=== PATIENT | male | born 1950 | race Hispanic/Latino ===

== ENCOUNTER 2017-06-15 11:11 | Inpatient (IN) | payer MEDICARE ==
[2017-06-15 11:17] VITALS: BMI 20.1
--- NOTE | 2017-06-15 12:07 | C.PDOC ---
History Of Present Illness 66 y/o male presents to emergency department who was prescreened for alcohol detox prior to arrival. Patient reports he regularly drinks 1/2 liter of vodka per day, noting last drink was this morning. Patient also admits to tobacco use for 45 years. Otherwise, denies headache, fever, chills, chest pain, SOB, nausea , vomiting, withdrawal symptoms. Denies suicidal ideation or homicidal ideation. Time Seen by Provider: 06/15/17 11:38 Chief Complaint (Nursing): Substance Abuse History Per: Patient History/Exam Limitations: no limitations Onset/Duration Of Symptoms: Persistent Current Symptoms Are (Timing): Still Present Modifying Factor(s): Alcohol Associated Symptoms: denies: Suicidal Thoughts, Suicidal Plan Recent travel outside of the [place]: No Past Medical History Reviewed: Historical Data, Nursing Documentation, Vital Signs Vital Signs: Last Vital Signs Temp 97.9 F 06/15/17 14:45 Pulse 104 H 06/15/17 14:45 Resp 18 06/15/17 14:45 BP 109/69 06/15/17 14:45 Pulse Ox 95 06/15/17 14:45 Family History: States: Unknown Family Hx - Social History Hx Alcohol Use: Yes Hx Substance Use: No - Immunization History Hx Tetanus Toxoid Vaccination: No Hx Influenza Vaccination: No Hx Pneumococcal Vaccination: No Review Of Systems Except As Marked, All Systems Reviewed And Found Negative. Constitutional: Negative for: Fever, Chills Cardiovascular: Negative for: Chest Pain Respiratory: Negative for: Cough, Shortness of Breath Gastrointestinal: Negative for: Nausea, Vomiting, Abdominal Pain Skin: Negative for: Rash Neurological: Negative for: Headache, Dizziness Physical Exam - Physical Exam Appears: Non-toxic, No Acute Distress, Other (thin, frail) Skin: Normal Color, Warm, Dry Head: Atraumatic, Normacephalic Chest: Symmetrical Cardiovascular: Rhythm Regular Respiratory: Rales (some, bilateral), No Rhonchi, No Stridor, No Wheezing Gastrointestinal/Abdominal: Soft, No Tenderness, No Guarding, No Rebound Back: Normal Inspection Extremity: Normal ROM, Capillary Refill (< 2 sec.) Neurological/Psych: Oriented x3, Normal Speech, Normal Cognition ED Course And Treatment - Laboratory Results Result Diagrams: 06/15/17 12:32 06/15/17 12:32 O2 Sat by Pulse Oximetry: 98 (RA) Pulse Ox Interpretation: Normal - Other Rad Chest X-Ray X-Ray: Viewed By Me, Read By Radiologist Interpretation: FINDINGS: LUNGS: Hyperinflation may be seen in setting of COPD. Mild bibasilar atelectasis. Bilateral 7 mm nodular densities may reflect nipple shadows. Please note that chest x-ray has limited sensitivity for the detection of pulmonary masses. PLEURA: No significant pleural effusion identified. No definite pneumothorax . CARDIOVASCULAR: Heart size appears within normal limits. OSSEOUS STRUCTURES: Mild degenerative changes of the spine. VISUALIZED UPPER ABDOMEN: Unremarkable. OTHER FINDINGS: None. IMPRESSION: Hyperinflation may be seen in the setting of COPD. Mild bibasilar atelectasis. Bilateral 7 mm nodular densities may reflect nipple shadows. Disposition Counseled Patient/Family Regarding: Diagnosis - Disposition Disposition: HOSPITALIZED Disposition Time: 18:33 Condition: GUARDED Forms: [facility] (Yoruba) - POA Present On Arrival: None - Clinical Impression Clinical Impression: Alcohol abuse - Scribe Statement The provider has reviewed the documentation as recorded by the Scribpepe Ferris All medical record entries made by the Lyibe were at my direction and personally dictated by me. I have reviewed the chart and agree that the record accurately reflects my personal performance of the history, physical exam, medical decision making, and the department course for this patient. I have also personally directed, reviewed, and agree with the discharge instructions and disposition. Decision To Admit - Pt Status Changed To: Hospital Disposition Of: Inpatient - Admit Certification Admit to Inpatient:: After my assessment, the patient will require hospitalization for at least two midnights. This is because of the severity of symptoms shown, intensity of services needed, and/or the medical risk in this patient being treated as an outpatient. - InPatient: Physician Admission Certification: I certify that this patient requires 2 or more midnights of care for the following reason:: needs inpatient detox - . Bed Request Type: Detox Patient Diagnosis: Alcohol abuse
--- NOTE | 2017-06-15 12:30 | RAD ---
HISTORY: medical clearance COMPARISON: None available. TECHNIQUE: Chest PA and lateral FINDINGS: LUNGS: Hyperinflation may be seen in setting of COPD. Mild bibasilar atelectasis. Bilateral 7 mm nodular densities may reflect nipple shadows. Please note that chest x-ray has limited sensitivity for the detection of pulmonary masses. PLEURA: No significant pleural effusion identified. No definite pneumothorax . CARDIOVASCULAR: Heart size appears within normal limits. OSSEOUS STRUCTURES: Mild degenerative changes of the spine. VISUALIZED UPPER ABDOMEN: Unremarkable. OTHER FINDINGS: None. IMPRESSION: Hyperinflation may be seen in the setting of COPD. Mild bibasilar atelectasis. Bilateral 7 mm nodular densities may reflect nipple shadows.
[2017-06-15 12:35] LABS: BASO # 0.1 K/uL (0.0-0.2); BASO % 1.1 % (0.0-2.0); EOS % 0.9 % (0.0-4.0); HEMATOCRIT 33.5 % (35.0-51.0); LYMPH % 19.8 % (20.0-40.0); MEAN CORPUSCULAR HEMOGLOBIN 36.5 pg (27.0-31.0); MEAN CORPUSCULAR HGB CONC 34.8 g/dL (33.0-37.0); MEAN PLATELET VOLUME 6.8 fL (7.2-11.7); MONO # 0.4 K/uL (0.0-0.8); NRBC % 0.3 % (0.0-2.0); RED CELL DISTRIBUTION WIDTH 22.8 % (11.5-14.5); WHITE BLOOD COUNT 5.3 K/uL (4.8-10.8)
[2017-06-15 12:43] LABS: CHLORIDE 93 mmol/L (98-107); POTASSIUM 3.1 mmol/L (3.6-5.2); SODIUM 142 mmol/L (132-148)
[2017-06-15 12:46] LABS: ALB/GLOB RATIO 1.2 (1.0-2.1); ALKALINE PHOSPHATASE 111 U/L (38-126); ALT/SGPT 27 U/L (21-72); AST/SGOT 45 U/L (17-59); BILIRUBIN,TOTAL 0.5 mg/dL (0.2-1.3); BLOOD UREA NITROGEN 10 mg/dL (9-20); CARBON DIOXIDE 27 mmol/L (22-30); GFR AFRICAN-AMERICAN > 60; GLUCOSE,RANDOM 133 mg/dL (75-110); TOTAL PROTEIN 7.4 g/dL (6.3-8.3)
[2017-06-15 13:18] LABS: ALCOHOL SERUM 320 mg/dl (0-10)
[2017-06-15 13:50] LABS: RBC URINE 2 /hpf (0-3); URINE BACTERIA RARE (<OCC); URINE BILIRUBIN NEGATIVE (NEGATIVE); URINE BLOOD 1+ (NEGATIVE); URINE COLOR Yellow (YELLOW); URINE GLUCOSE (UA) 1+ mg/dL (Normal); URINE KETONE TRACE mg/dL (NEGATIVE); URINE LEUKOCYTE ESTERASE NEG Leu/uL (Negative); URINE PROTEIN 2+ mg/dL (NEGATIVE); WBC URINE 4 /hpf (0-5)
--- NOTE | 2017-06-15 18:49 | PCM.BM ---
<Kym Perea - Last Filed: 06/15/17 18:47> Treatment Plan Problems - Problems identified on initial assessmt potiential for automonic instability related to alcohol withdrawal Date Initiated: 06/15/17 Time Initiated: 18:48 Assessment reference: NA Status: Active Treatment assets and liabiliti Patient Assests: ADL independent Patient Liabilities: substance abuse - Milieu Protocol Maintain good personal hygiene: daily Encourage regular showers, daily Remind patient to perform daily oral care, daily Assist patient to perform ADL's Maintain personal safety: every shift Educate patient to report safety concerns to staff, every shift Monitor environment for contraband/sharps Medication safety: Monitor for expected outcome, potential side effects: every shift, Assess barriers to learning: every shift, Assess readiness for medication education: every shift <Allison Payton - Last Filed: 06/16/17 12:24> Family Contact Family involvement: Patient does not wish Family/SO involvement Family contact: Patient declines to allow family contact at present - Goals for Treatment Patient goals for treatment: Compete detox and transition to short-term rehab. Discharge/Continuing Care - Education Needs Education Needs: Patient Medication, Patient Diagnosis/Disease Process, Patient Coping Skills, Patient Anger Management skills, Patient Placement options, Patient Community resources, Patient Uses of Medical Equipment (walker) - Discharge Discharge Criteria: Ability to care for self, No longer exhibiting s/s of withdrawal, Reduction of target symptoms Discharge to:: Substance Abuse Rehab - Treatment Team Participation Patient/Family/SO Statement: 06/16/17 12:26 "I wanna go to a 30-day rehab but I don't know which one". Discussed with Family/SO: No Was Patient/Family/SO present at Treatment Team Meeting: Yes <Kyle Daley - Last Filed: 06/18/17 17:20> - Diagnosis (1) Alcohol use disorder, severe, dependence Status: Acute Interventions: 06/18/17 17:20 * Assess 7x/week regarding severity of withdrawal * Educate regarding risks, benefits, side effects and alternatives of medications * Use Motivational Interviewing for abstinence * Use CBT for relapse prevention * Medication management for withdrawal symptoms * Encourage medication assisted treatment *
[2017-06-15] MEDS ORDERED: Potassium Chloride 20 mEq ER Tab PO ONE (20:07)
[2017-06-15] MEDS ORDERED: Potassium Chloride 20 mEq ER Tab PO STA (20:07)
[2017-06-16 08:56] LABS: CHLORIDE 93 mmol/L (98-107); SODIUM 134 mmol/L (132-148)
[2017-06-16 08:57] LABS: POTASSIUM 3.5 mmol/L (3.6-5.2)
[2017-06-16 08:59] LABS: ALB/GLOB RATIO 0.9 (1.0-2.1); ALKALINE PHOSPHATASE 86 U/L (38-126); ALT/SGPT 27 U/L (21-72); AST/SGOT 40 U/L (17-59); BILIRUBIN,TOTAL 0.8 mg/dL (0.2-1.3); BLOOD UREA NITROGEN 12 mg/dL (9-20); CARBON DIOXIDE 29 mmol/L (22-30); GFR AFRICAN-AMERICAN > 60; GLUCOSE,RANDOM 106 mg/dL (75-110); TOTAL PROTEIN 7.2 g/dL (6.3-8.3)
[2017-06-16] MEDS: Multiple Vitamins Tab PO SCH (10:43)
[2017-06-16 11:09] LABS: MAGNESIUM 0.7 mg/dL (1.6-2.3)
[2017-06-16] MEDS: Magnesium Oxide 400 mg Tab UD PO SCH ×2 (12:20→18:32)
--- NOTE | 2017-06-16 13:29 | PCM.PSYCH ---
Initial Psychiatric Evaluation - Initial Psychiatric Evaluation Type of Admission: Voluntary Legal Status: Capacity Chief Complaint (in patient's own words): "I don't feel well" Patient's Reaction to Hospitalization: Cooperative History of Present Illness and Precipitating Events: Pt is seen, chart reviewed, case discussed with staff. Pt is a 66 year old white male with a PMH of cataracts in his right eye and right knee injury who presented to the ED 06/15/17 for alcohol detox. He is , has 1 child, and lives with his "door repairer bus" of 13 years (common law ). He is currently retired from work at "a number of places" (unspecified). He reports to drink half a liter of vodka daily. His alcohol use began at the age of 22. He has been to 6 detoxes and 1 rehab at [place] in [place]. He reports to have taken Antabuse for 1 year but stopped because "I felt like I could go along without it." He relapsed ~8 years later, with that being his longest period of sobriety. He has attended AA for the past 2 years. He also reports to smoking ~10 cigarettes daily and requested a patch. He denies the use of other drugs. He denies a personal psychiatric history. He reports "psych issues" in his sister (he was unable to specify) and has 2 brothers who "drink and use drugs." He does not feel well currently but denies tremors, hallucinations, delirium and seizures. Support and psychoeducation given. TN and CBT used briefly. After care discussed. He is hoping to attend inpatient rehab. Will discuss with counselors. Current Medications: Active Medications Generic Name Dose Route Start Last Admin Trade Name Freq PRN Reason Stop Dose Admin Chlordiazepoxide 25 mg 06/15/17 22:18 Librium PO Q4H PRN Alcohol Withdrawal Chlordiazepoxide 50 mg 06/16/17 00:00 06/16/17 12:20 Librium PO 06/20/17 23:59 50 mg Q6H EDWINA Administration Taper Clonidine HCl 0.1 mg 06/15/17 21:38 06/15/17 21:52 Catapres PO 0.1 mg Q4H PRN Administration Symptoms of alcohol withdrawl Folic Acid 1 mg 06/16/17 10:00 06/16/17 10:43 Folic Acid PO 1 mg DAILY EDWINA Administration Magnesium Oxide 400 mg 06/16/17 11:30 06/16/17 12:20 Mag-Ox PO 400 mg TID EDWINA Administration Multivitamins 1 tab 06/16/17 10:00 06/16/17 10:43 Hexavitamin PO 1 tab DAILY EDWINA Administration Nicotine 1 patch 06/16/17 10:00 06/16/17 10:43 Nicoderm Cq TD 1 patch DAILY EDWINA Administration Pneumococcal Polyvalent Vaccine 0.5 ml 06/17/17 10:07 Pneumovax 23 Vaccine SC 06/17/17 10:08 .ONCE ONE Thiamine HCl 100 mg 06/16/17 10:00 06/16/17 10:43 Vitamin B1 Tab PO 100 mg DAILY EDWINA Administration Trazodone HCl 50 mg 06/15/17 23:01 06/15/17 23:31 Desyrel PO 50 mg HS PRN Administration Insomnia Past Psychiatric History - Past Psychiatric History Previous Treatment History: Inpatient Prior Professional Help: 6 detoxes, 1 rehab History of ETOH/Drug Use: Alcohol, cigarettes History of Family Illness: Unspecified "psych issues" in sister, JOHANNY in 2 brothers Pertinent Medical Hx (Current Medical&Sleep Prob, Allergies): Allergies Allergy/AdvReac Type Severity Reaction Status Date / Time No Known Allergies Allergy Verified 06/15/17 11:16 Nicotine [Nicotine Patch] 1 each TD DAILY 06/15/17 Review of Systems - Neurological Neurological: absent: Tremor - Psychiatric Psychiatric: Anxiety, Irritability. absent: Hallucinations Mental Status Examination - Personal Presentation Personal Presentation: Looks stated age - Affect Affect: Constricted - Motor Activity Motor Activity: Psychomotor Retardation Additional comments: Needs assistance to remain steady during ambulation, though he denies routine use of walker - Reliability in Providing Information Reliability in Providing Information: Good - Speech Speech: Organized, Relevant, Coherent - Mood Mood: Depressed, Anxious - Formal Thought Process Formal Thought Process: No Impairment - Obsessions/Compulsions Obsessions: None Compulsions: None - Cognitive Functions Orientation: Person, Place, Situation, Time Sensorium: Lethargic Attention/Concentration: Attentive Estimate of Intelligence: Average Judgement: Intact, as evidence by: Insight regarding need for hospitalization Memory: Recent intact, as evidence by: Ability to recall events of the day, Remote intact, as evidenced by: Abilit to recall sig. life events - Risk Risk: Seizure, Withdrawal, Diminished functioning - Strength & Assets Inventory Strength & Assets Inventory: Family support, Life experience, Cooperative DSM 5 DX - DSM 5 DSM 5 Diagnosis: Alcohol use disorder, severe Alcohol withdrawal - Recommended/Plan of Treatment Treatment Recommendations and Plan of Treatment: Librium detox As needed meds and vitamins Support and psychoeducation daily Attend groups and activities daily Attend self-help groups as well TN for abstinence CBT for relapse prevention After care planning with counselors Projected ELOS: 3-4 days Prognosis: Good with treatment - Smoking Cessation Smoking Cessation Initiated: Yes
[2017-06-17 08:52] LABS: CHLORIDE 92 mmol/L (98-107)
[2017-06-17 08:53] LABS: POTASSIUM 3.3 mmol/L (3.6-5.2); SODIUM 129 mmol/L (132-148)
[2017-06-17 08:56] LABS: GFR AFRICAN-AMERICAN > 60
[2017-06-17 08:57] LABS: ALKALINE PHOSPHATASE 77 U/L (38-126); ALT/SGPT 26 U/L (21-72); AST/SGOT 48 U/L (17-59); BILIRUBIN,TOTAL 0.8 mg/dL (0.2-1.3); BLOOD UREA NITROGEN 14 mg/dL (9-20); CALCIUM 8.4 mg/dl (8.6-10.4); CARBON DIOXIDE 28 mmol/L (22-30); GLUCOSE,RANDOM 85 mg/dL (75-110); MAGNESIUM 1.1 mg/dL (1.6-2.3); TOTAL PROTEIN 6.4 g/dL (6.3-8.3)
[2017-06-17] MEDS ORDERED: Pneumococcal 23-Valent Vaccine SC ONE (10:07)
[2017-06-17] MEDS: Magnesium Oxide 400 mg Tab UD PO SCH ×4 (10:28→17:22)
[2017-06-17] MEDS: Multiple Vitamins Tab PO SCH (10:28)
[2017-06-17] MEDS: Albuterol-Ipratrop 3 mg / 0.5 (3 ml) UD INH SCH ×3 (11:32→20:17)
--- NOTE | 2017-06-17 11:45 | PCM.PYCHPN ---
Psychiatric Progress Note - Psychiatric Progress Note Patient seen today, length of contact: 16 min Patient Chief Complaint: "It's getting a little better" Problems Identified/Issues Discussed: Pt is seen, chart reviewed, case discussed with staff. Pt is compliant with medications and reports no side effects. He reports some difficulty with ambulation (he has been given a walker) but he was able to eat dinner last night and breakfast this morning. He has some tremors but denies sweats. Symptoms are improving but pt needs more time to stabilize. Support and psychoeducation given, CBT and SC used briefly. After care discussed. He would like to attend a short-term rehab program. When asked why he won't consider long-term, he states "I have stuff to do at home." Will work with counselors for placement. He also expresses interested in Antabuse or naltrexone therapy. Medication Change: Yes (Detox meds change daily) Medical Record Reviewed: Yes Mental Status Examination - Cognitive Function Orientation: Person, Place, Situation, Time Memory: Intact Attention: WNL Concentration: WNL Association: WN Fund of Knowledge: WN - Mood Mood: Depressed, Anxious - Affect Affect: Constricted - Speech Speech: Appropriate, Soft - Formal Thought Process Formal Thought Process: No Impairment - Suicidal Ideation Suicidal Ideation: No - Homicidal Ideation Homicidal Ideation: No Goal/Treatment Plan - Goal/Treatment Plan Need for Continued Stay: Discharge may exacerbated symptoms, Severe functional impairment Progress Toward Problem(s) and Goals/Treatment Plan: Librium detox As needed meds and vitamins Support and psychoeducation daily Attend groups and activities daily Attend self-help groups as well SC for abstinence CBT for relapse prevention After care planning with counselors
[2017-06-18] MEDS: Albuterol-Ipratrop 3 mg / 0.5 (3 ml) UD INH SCH ×2 (09:50→20:12)
[2017-06-18] MEDS: Multiple Vitamins Tab PO SCH (09:50)
[2017-06-18] MEDS: Magnesium Oxide 400 mg Tab UD PO SCH ×3 (09:50→17:21)
--- NOTE | 2017-06-18 10:04 | PCM.PYCHPN ---
Psychiatric Progress Note - Psychiatric Progress Note Patient seen today, length of contact: 16 min Patient Chief Complaint: "Better" Problems Identified/Issues Discussed: The pt is seen, chart reviewed, case discussed with staff. The pt is compliant with medications and reports no side-effects. Symptoms are improving but needs more time to stabilize. After care discussed, support and psychoeducation given. meds ordered for electrolyte imbalance PT consult appreciated, uses a walker Medication Change: Yes (detox adjusted) Medical Record Reviewed: Yes Mental Status Examination - Cognitive Function Orientation: Person, Place, Situation, Time Memory: Intact Attention: WNL Concentration: Poor Association: WNL Fund of Knowledge: WNL - Mood Mood: Depressed, Anxious - Affect Affect: Constricted - Speech Speech: Appropriate, Soft - Formal Thought Process Formal Thought Process: No Impairment - Suicidal Ideation Suicidal Ideation: No - Homicidal Ideation Homicidal Ideation: No Goal/Treatment Plan - Goal/Treatment Plan Need for Continued Stay: Discharge may exacerbated symptoms, Severe functional impairment Progress Toward Problem(s) and Goals/Treatment Plan: Librium detox adjusted As needed meds and vitamins Support and psychoeducation daily Attend groups and activities daily Attend self-help groups as well [place] for abstinence CBT for relapse prevention After care planning with counselors
[2017-06-18] MEDS: Potassium Chloride 20 mEq ER Tab PO SCH (11:49)
[2017-06-18 12:57] LABS: CHLORIDE 93 mmol/L (98-107); POTASSIUM 3.3 mmol/L (3.6-5.2); SODIUM 134 mmol/L (132-148)
[2017-06-18 13:00] LABS: ALB/GLOB RATIO 0.9 (1.0-2.1); ALKALINE PHOSPHATASE 97 U/L (38-126); ALT/SGPT 35 U/L (21-72); AST/SGOT 57 U/L (17-59); BILIRUBIN,TOTAL 0.3 mg/dL (0.2-1.3); BLOOD UREA NITROGEN 15 mg/dL (9-20); CALCIUM 9.4 mg/dl (8.6-10.4); CARBON DIOXIDE 31 mmol/L (22-30); GFR AFRICAN-AMERICAN > 60; GLUCOSE,RANDOM 108 mg/dL (75-110); TOTAL PROTEIN 7.1 g/dL (6.3-8.3)
[2017-06-18 13:01] LABS: MAGNESIUM 1.4 mg/dL (1.6-2.3)
[2017-06-19] MEDS: Magnesium Oxide 400 mg Tab UD PO SCH ×3 (10:10→17:07)
[2017-06-19] MEDS: Potassium Chloride 20 mEq ER Tab PO SCH (10:14)
[2017-06-19] MEDS: Multiple Vitamins Tab PO SCH (10:14)
--- NOTE | 2017-06-19 11:33 | PCM.PYCHPN ---
Psychiatric Progress Note - Psychiatric Progress Note Patient seen today, length of contact: 15 min Patient Chief Complaint: "I am worried" Problems Identified/Issues Discussed: The pt is seen, chart reviewed, case discussed with staff. The pt is compliant with medications and reports no side-effects. Symptoms are improving but needs more time to stabilize. After care discussed, support and psychoeducation given. He is worried about rehab. He really wants to go there i[facility] His POx is better w/o duoneb today Labs are still off and will be repeated. Medication Change: Yes (Detox meds change daily) Medical Record Reviewed: Yes Mental Status Examination - Cognitive Function Orientation: Person, Place, Situation, Time Memory: Intact Attention: WNL Concentration: WNL Association: WNL Fund of Knowledge: WNL - Mood Mood: Depressed, Anxious - Affect Affect: Constricted - Speech Speech: Appropriate, Soft - Formal Thought Process Formal Thought Process: No Impairment - Suicidal Ideation Suicidal Ideation: No - Homicidal Ideation Homicidal Ideation: No Goal/Treatment Plan - Goal/Treatment Plan Need for Continued Stay: Discharge may exacerbated symptoms, Severe functional impairment Progress Toward Problem(s) and Goals/Treatment Plan: Librium detox As needed meds and vitamins Support and psychoeducation daily Attend groups and activities daily Attend self-help groups as well [place] for abstinence CBT for relapse prevention After care planning with counselors Estimated Date of D/C: 06/21/17
--- NOTE | 2017-06-20 06:41 | CARD ---
APPROVED REPORT EKG Measurement Heart [id number] <Conclusion> Normal sinus rhythm with sinus arrhythmia Normal ECG
[2017-06-20] MEDS: Potassium Chloride 20 mEq ER Tab PO SCH (10:17)
[2017-06-20] MEDS: Magnesium Oxide 400 mg Tab UD PO SCH ×3 (10:17→17:11)
[2017-06-20] MEDS: Multiple Vitamins Tab PO SCH (10:17)
[2017-06-20 12:23] LABS: CHLORIDE 94 mmol/L (98-107)
[2017-06-20 12:24] LABS: SODIUM 131 mmol/L (132-148)
[2017-06-20 12:27] LABS: ALB/GLOB RATIO 1.1 (1.0-2.1); ALKALINE PHOSPHATASE 101 U/L (38-126); ALT/SGPT 65 U/L (21-72); AST/SGOT 149 U/L (17-59); BILIRUBIN,TOTAL 0.5 mg/dL (0.2-1.3); BLOOD UREA NITROGEN 14 mg/dL (9-20); CARBON DIOXIDE 28 mmol/L (22-30); GFR AFRICAN-AMERICAN > 60; GLUCOSE,RANDOM 88 mg/dL (75-110); TOTAL PROTEIN 7.7 g/dL (6.3-8.3)
[2017-06-20 12:28] LABS: CALCIUM 10.6 mg/dl (8.6-10.4); MAGNESIUM 1.4 mg/dL (1.6-2.3)
--- NOTE | 2017-06-20 12:54 | PCM.PYCHPN ---
Psychiatric Progress Note - Psychiatric Progress Note Patient seen today, length of contact: 15 min Patient Chief Complaint: "I am better" Problems Identified/Issues Discussed: The pt is seen, chart reviewed, case discussed with staff. Support given, CBT and [place] used briefly No new symptoms reported, improving slowly and needs more time No SEs from medications, risks discussed. After care discussed, hoping to go [facility] Medication Change: Yes (Detox meds change daily) Medical Record Reviewed: Yes Mental Status Examination - Cognitive Function Orientation: Person, Place, Situation, Time Memory: Intact Attention: WNL Concentration: WNL Association: WN Fund of Knowledge: WN - Mood Mood: Depressed, Anxious - Affect Affect: Constricted - Speech Speech: Appropriate, Soft - Formal Thought Process Formal Thought Process: No Impairment - Suicidal Ideation Suicidal Ideation: No - Homicidal Ideation Homicidal Ideation: No Goal/Treatment Plan - Goal/Treatment Plan Need for Continued Stay: Discharge may exacerbated symptoms, Severe functional impairment Progress Toward Problem(s) and Goals/Treatment Plan: Librium detox As needed meds and vitamins Support and psychoeducation daily Attend groups and activities daily Attend self-help groups as well [place] for abstinence CBT for relapse prevention After care planning with counselors Estimated Date of D/C: 06/21/17
[2017-06-20] MEDS ORDERED: Albuterol-Ipratrop 3 mg / 0.5 (3 ml) UD INH PRN (23:35)
[2017-06-21 06:28] VITALS: RESP 18
--- NOTE | 2017-06-21 08:44 | PCM.PYCHDC ---
Mental Status Examination - Mental Status Examination Orientation: Person, Place, Situation, Time Memory: Impaired Mood: Anxious Affect: Constricted Speech: Slurred Attention: Poor Concentration: Poor Association: WNL Fund of Knowledge: WNL Formal Thought Process: No Impairment Suicidal Ideation: No Current Homicidal Ideation?: No Discharge Summary - Discharge Note Reason for Hospitalization: Alcohol detox Laboratory Data: Abnormal Lab Results 06/20/17 11:53 Sodium 131 L Potassium 5.0 Chloride 94 L Carbon Dioxide 28 Anion Gap 14 BUN 14 Creatinine 0.8 Est GFR ( Amer) > 60 Est GFR (Non-Af Amer) > 60 Random Glucose 88 Calcium 10.6 H Magnesium 1.4 L Total Bilirubin 0.5 AST 149 H D ALT 65 Alkaline Phosphatase 101 Total Protein 7.7 Albumin 4.0 Globulin 3.6 Albumin/Globulin Ratio 1.1 Consultations:: List each consultation separately and include: 1. Reason for request. 2. Findings. 3. Follow-up Consultations: Medicine consulted unofficially PT consult appreciated Summary of Hospital Course include:: 1. Description of specific treatment plan utilized for patients during their course of treatmen. 2. Summarize the time- course for resolution of acute symptoms and/or regressed behaviors. 3. Describe issues identified and worked on during hospitalization. 4. Describe medication utilized. 5. Describe medical problems identified and treated. 6. Reassessment of suicide risk Summary of Hospital Course: Pt is seen, chart reviewed, case discussed with staff. Pt is a 66 year old white male with a PMH of cataracts in his right eye and right knee injury who presented to the ED 06/15/17 for alcohol detox. He is , has 1 child, and lives with his "postpartum rn" of 13 years (common law ). He is currently retired from work at "a number of places" (unspecified). He reports to drink half a liter of vodka daily. His alcohol use began at the age of 22. He has been to 6 detoxes and 1 rehab at [place] in [place]. He reports to have taken Antabuse for 1 year but stopped because "I felt like I could go along without it." He relapsed ~8 years later, with that being his longest period of sobriety. He has attended AA for the past 2 years. He also reports to smoking ~10 cigarettes daily and requested a patch. He denies the use of other drugs. He denies a personal psychiatric history. He reports "psych issues" in his sister (he was unable to specify) and has 2 brothers who "drink and use drugs." He does not feel well currently but denies tremors, hallucinations, delirium and seizures. Support and psychoeducation given. ND and CBT used briefly. After care discussed. He is hoping to attend inpatient rehab. Will discuss with counselors. Hospital course: The pt was admitted and started on treatment with psychotherapy, support, psychoeducation and medications. ND and CBT used. The pt attended groups and activities, as well as milieu therapy. All the risks and benefits of medications are discussed and the patient understood and agreed. The pt improved with the treatments provided. After care discussed with the patient. Wait listed in [facility] he was frail and bed-bound a lot, plus had urinary incontinence and lots of electrolyte imbalance and some hypoxia. Meds helped. - Final Diagnosis (DSM 5) Condition upon Discharge: IMPROVED DSM 5: Alcohol use disorder, severe Alcohol withdrawal Disposition: HOME/ ROUTINE Follow-up Treatment Plan: Continue below medications after discharge. Follow after care plan as discussed. Use relapse prevention skills Return to ER or call 911 if suicidal, homicidal or symptoms relapse. Stay away from stress, alcohol and drugs. See primary doctor regularly and get labs. Prescriptions/Medication Reconciliation: Magnesium Oxide [Mag-Ox] 400 mg PO BID #30 tab Multivitamins [Hexavitamin] 1 tab PO DAILY #30 tab Nicotine 21 mg/24 hr [Nicoderm Cq] 1 patch TD DAILY #30 patch traZODone [Desyrel] 50 mg PO HS PRN #30 tab PRN Reason: Insomnia - Smoking Cessation Smoking Cessation Medication prescribed: No - Antipsychotic Medications Pt discharged on 2 or more routine antipsychotic medications: No
[2017-06-21 09:00] VITALS: BP 105/74; PULSE 82; TEMP 97.4; O2SAT 98
[2017-06-21] MEDS: Magnesium Oxide 400 mg Tab UD PO SCH (10:00)
[2017-06-21] MEDS: Multiple Vitamins Tab PO SCH (10:01)
== END 2017-06-21 12:00 | disposition home or self-care (01) | DRG 895 ==
LOC: C.ER 11:11 → C.7D 18:34
PROVIDERS: ADMIT Psychiatry & Neurology Psychiatry; ATTEND Psychiatry & Neurology Psychiatry
PROC: HZ46ZZZ Group Counseling for Substance Abuse Treatment, Psychoeducation (ICD-10-PCS; principal; 2017-06-15)
PROC: HZ42ZZZ Group Counseling for Substance Abuse Treatment, Cognitive-Behavioral (ICD-10-PCS; 2017-06-15)
PROC: HZ2ZZZZ Detoxification Services for Substance Abuse Treatment (ICD-10-PCS; 2017-06-15)
DX: F10.239 Alcohol dependence with withdrawal, unspecified (principal); E87.8 Other disorders of electrolyte and fluid balance, not elsewhere classified; F17.210 Nicotine dependence, cigarettes, uncomplicated; R09.02 Hypoxemia; R32 Unspecified urinary incontinence; Z74.01 Bed confinement status; H26.9 Unspecified cataract